=== PATIENT | female | born 1995 | race American Indian/Alaskan Native ===

== ENCOUNTER 2019-05-16 21:48 | Emergency (ER) | payer SELFPAY ==
[2019-05-16 21:58] VITALS: BP 136/88
--- NOTE | 2019-05-16 22:09 | Emergency Department Report ---
Blank Doc - Documentation Documentation: This is a 23-year-old female that presents with abscess. This initial assessment/diagnostic orders/clinical plan/treatment(s) is/are subject to change based on patient's health status, clinical progression and re- assessment by fellow clinical providers in the ED. Further treatment and workup at subsequent clinical providers discretion. Patient/guardians urged not to elope from the ED as their condition may be serious if not clinically assessed and managed. Initial orders include: 1- Patient sent to [facility] for further evaluation and treatment
[2019-05-16] MEDS ORDERED: XYLOCAINE 1% MPF 5 mL INFILTRATI ONE (22:26)
[2019-05-16] MEDS ORDERED: XYLOCAINE 1% MPF 5 mL ONE (22:28)
[2019-05-16] MEDS ORDERED: TORADOL IM ONE (23:12)
[2019-05-16] MEDS ORDERED: DECADRON IM ONE (23:12)
--- NOTE | 2019-05-16 23:18 | Emergency Department Report ---
ED General Adult HPI - General Chief complaint: Skin/Abscess/Foreign Body Stated complaint: PAIN IN BUTTOCKS, CYST RIGHT UNDERARM Time Seen by Provider: 05/16/19 22:09 Source: patient Mode of arrival: Ambulatory Limitations: No Limitations - History of Present Illness Initial comments: Patient is a 23-year-old AA female with no past medical history who presents to the ED with c/o acute onset persistent severe coccygeal pain and swollen painful right axilla rash x 1 week. Patient denies dyspnea, nausea, vomiting, dizziness, traumatic injury or weakness, chest pain, dyspnea, low back pain, heavy lifting or vision changes or abdominal pain MD Complaint: Tail bone pain, right axilla rash -: Sudden, week(s) (1) Location: buttocks, upper extremity (right axilla) Radiation: non-radiation Severity scale (0 -10): 8 Quality: aching, sharp Consistency: constant Improves with: none Worsens with: movement, rest Associated Symptoms: denies other symptoms, rash (erythematous swollen painful rash on left axilla). denies: confusion, chest pain, cough, diaphoresis, fever/chills, headaches, loss of appetite, malaise, nausea/vomiting, seizure, shortness of breath, syncope, weakness Treatments Prior to Arrival: none - Related Data Previous Rx's Medication Instructions Recorded Last Taken Type Clindamycin [Clindamycin CAP] 300 mg PO Q8HR #60 capsule 05/16/19 Unknown Rx Ibuprofen [Motrin] 800 mg PO Q8HR PRN #20 tablet 05/16/19 Unknown Rx Sulfamethoxazole/Trimethoprim 1 each PO Q12H #20 tablet 05/16/19 Unknown Rx [Bactrim DS TAB] predniSONE [Deltasone] 60 mg PO QDAY #15 tab 05/16/19 Unknown Rx Allergies Allergy/AdvReac Type Severity Reaction Status Date / Time No Known Allergies Allergy Verified 05/16/19 22:27 ED Review of Systems ROS: Stated complaint: PAIN IN BUTTOCKS, CYST RIGHT UNDERARM Other details as noted in HPI Constitutional: denies: chills, fever Eyes: denies: eye pain, eye discharge, vision change ENT: denies: ear pain, throat pain Respiratory: denies: cough, shortness of breath, wheezing Cardiovascular: denies: chest pain, palpitations Endocrine: no symptoms reported Gastrointestinal: denies: abdominal pain, nausea, vomiting, diarrhea Genitourinary: denies: urgency, dysuria, discharge Musculoskeletal: back pain (Tail bone pain), arthralgia, myalgia. denies: joint swelling Skin: rash (Erythematous painful rash on right axilla). denies: lesions Neurological: denies: headache, weakness, paresthesias Psychiatric: denies: anxiety, depression Hematological/Lymphatic: denies: easy bleeding, easy bruising ED Past Medical Hx - Past Medical History Previous Medical History?: No - Surgical History Past Surgical History?: No - Social History Smoking Status: Current Every Day Smoker Substance Use Type: Alcohol, Marijuana - Medications Home Medications: Home Medications Medication Instructions Recorded Confirmed Last Taken Type Clindamycin [Clindamycin CAP] 300 mg PO Q8HR #60 capsule 05/16/19 Unknown Rx Ibuprofen [Motrin] 800 mg PO Q8HR PRN #20 tablet 05/16/19 Unknown Rx Sulfamethoxazole/Trimethoprim 1 each PO Q12H #20 tablet 05/16/19 Unknown Rx [Bactrim DS TAB] predniSONE [Deltasone] 60 mg PO QDAY #15 tab 05/16/19 Unknown Rx ED Physical Exam - General Limitations: No Limitations General appearance: alert, in no apparent distress - Head Head exam: Present: atraumatic, normocephalic, normal inspection - Eye Eye exam: Present: normal appearance, PERRL, EOMI. Absent: scleral icterus, conjunctival injection, nystagmus Pupils: Present: normal accommodation - ENT ENT exam: Present: normal exam, normal orophraynx, mucous membranes moist. Absent: TM's normal bilaterally, normal external ear exam - Neck Neck exam: Present: normal inspection, full ROM. Absent: tenderness, meningismus, lymphadenopathy, thyromegaly - Respiratory Respiratory exam: Present: normal lung sounds bilaterally. Absent: respiratory distress, wheezes, rales, rhonchi, chest wall tenderness, accessory muscle use, decreased breath sounds - Cardiovascular Cardiovascular Exam: Present: regular rate, normal rhythm, normal heart sounds. Absent: systolic murmur, diastolic murmur, rubs, gallop - GI/Abdominal GI/Abdominal exam: Present: soft, normal bowel sounds. Absent: distended, tenderness, hyperactive bowel sounds, hypoactive bowel sounds - Rectal Rectal exam: Present: deferred - Extremities Exam Extremities exam: Present: normal inspection, tenderness (right axilla tenderness due to swollen erythematous nonfluctuant maculopapular rash), normal capillary refill - Back Exam Back exam: Present: normal inspection, full ROM, tenderness (Palpable coccygeal moderate tenderness). Absent: CVA tenderness (L), muscle spasm, paraspinal tenderness, vertebral tenderness - Neurological Exam Neurological exam: Present: alert, oriented X3, CN II-XII intact, normal gait, reflexes normal - Psychiatric Psychiatric exam: Present: normal affect, normal mood - Skin Skin exam: Present: warm, dry, intact, normal color, rash (erythematous, swollen mildly tender maculopapular nonfluctuant rash on right axilla), erythema ED Course Vital Signs 05/16/19 21:57 Temperature 98.4 F Pulse Rate 81 Respiratory 18 Rate Blood Pressure 136/88 [Right] O2 Sat by Pulse 99 Oximetry - Reevaluation(s) Reevaluation #1: 05/16/19 23:22 The patient is alert and oriented 3 and is not in distress with normal vital signs. Patient was treated for pain in the ED and discharged home on pain medications and antibiotics, advised follow-up with her primary care physician in 7-10 days for reevaluation or return to the ED immediately if symptoms get worse. ED Medical Decision Making - Medical Decision Making The patient is alert and oriented 3 and is not in distress with normal vital signs. Patient was treated for pain in the ED and discharged home on pain medications and antibiotics, advised follow-up with her primary care physician in 7-10 days for reevaluation or return to the ED immediately if symptoms get worse. - Differential Diagnosis cellulitis of right axilla; coccygeal muscle spasm; muscle strain Critical care attestation.: If time is entered above; I have spent that time in minutes in the direct care of this critically ill patient, excluding procedure time. ED Disposition Clinical Impression: Acute coccygeal pain, Muscle strain, Cellulitis of right axilla Disposition: TO HOME OR SELFCARE Is pt being admited?: No Does the pt Need Aspirin: No Condition: Stable Instructions: Arthralgia (ED), Muscle Strain (ED), Cellulitis (ED) Additional Instructions: The medications with food, and drink plenty of fluids and follow up with your primary care physician in 7-10 days. Return to the ED immediately if symptoms get worse. Prescriptions: Sulfamethoxazole/Trimethoprim [Bactrim DS TAB] 1 each PO Q12H #20 tablet Clindamycin [Clindamycin CAP] 300 mg PO Q8HR #60 capsule predniSONE [Deltasone] 60 mg PO QDAY #15 tab Ibuprofen [Motrin] 800 mg PO Q8HR PRN #20 tablet PRN Reason: Pain , Severe (7-10) Time of Disposition: 23:32 Print Language: MONGOLIAN
== END 2019-05-17 00:10 | disposition home or self-care (01) ==
LOC: ED 21:48
DX: M53.3 Sacrococcygeal disorders, not elsewhere classified (principal); L03.111 Cellulitis of right axilla
CPT/HCPCS: 96372; 99282; J1885